=== PATIENT | female | born 1970 | race Caucasian/White ===

== ENCOUNTER 2021-10-01 14:16 | Emergency (ER) | payer OTHER ==
[~2021-10-01] VITALS: Ht 170.2 cm; Wt 70.8 kg
--- NOTE | 2021-10-01 14:49 | NUR ---
PT IS IN ROOM #2A. DR VICKERS EVALUATED THE PT.
[2021-10-01 15:07] LABS: CARBON DIOXIDE 29 mmol/L (21-32); CHLORIDE 104 mmol/L (98-107); CREATININE 0.7 mg/dL (0.6-1.3); GLUCOSE 85 mg/dL (74-106); POTASSIUM 3.9 mmol/L (3.5-5.1); UREA NITROGEN, BLOOD 14 mg/dL (7-18)
[2021-10-01 15:16] LABS: ALANINE AMINOTRANSFERASE 21 U/L (14-59); ALKALINE PHOSPHATASE 50 U/L (50-136); ASPARTATE AMINOTRANSFERASE 9 U/L (15-37); BILIRUBIN,DIRECT 0.1 mg/dL (0.0-0.2); BILIRUBIN,TOTAL 0.4 mg/dL (0.2-1.0); LIPASE 139 U/L (73-393); TOTAL PROTEIN, SERUM 6.6 g/dL (6.4-8.2)
[2021-10-01 15:26] LABS: HEMATOCRIT 41.2 % (31.2-41.9); MEAN CORPUSCULAR VOLUME 85.5 fL (75.5-95.3); PLATELET COUNT (AUTO) 291 K/uL (179-408)
[2021-10-01 16:24] LABS: *BILIRUBIN,URIN NEGATIVE (NEGATIVE); *BLOOD, URINE NEGATIVE (NEGATIVE); *CLARITY,URINE CLEAR (CLEAR); *COLOR,URINE YELLOW (YELLOW); *KETONES,URINE NEGATIVE (NEGATIVE); *UROBILINOGEN,URINE 0.2 E.U./dl (NORMAL); LEUKOCYTE ESTERASE ,URINE NEGATIVE (NEGATIVE); NITRITE, URINE NEGATIVE (NEGATIVE); PH,URINE 5.5 (5.0-8.0); UGLUCOSE NEGATIVE (NEGATIVE)
[2021-10-01 16:30] LABS: *URINE HCG, QUAL NEGATIVE (NEGATIVE)
[2021-10-01] MEDS ORDERED: FAMO40TA7 PO (17:40)
[2021-10-01] MEDS ORDERED: MAG355OR18 PO (17:40)
[2021-10-01] MEDS ORDERED: MAG HYDROX/AL HYDROX/SIMETH 30 ML LIQUID UDC ONE (17:41)
[2021-10-01] MEDS ORDERED: LIDOCAINE VISCUS 2% 15 ML UDC ONE (17:41)
[2021-10-01] MEDS ORDERED: FAMOTIDINE 20 MG TABLET ONE (17:41)
[2021-10-01] MEDS ORDERED: FAMOTIDINE 20 MG TABLET PO ONE (17:45)
[2021-10-01] MEDS ORDERED: MAG HYDROX/AL HYDROX/SIMETH 30 ML LIQUID UDC PO ONE (17:45)
[2021-10-01] MEDS ORDERED: LIDOCAINE VISCUS 2% 15 ML UDC MM ONE (17:45)
--- NOTE | 2021-10-01 17:46 | NUR ---
PT WAS D/C'd TO HOME. D/C INSTRUCTIONS GIVEN TO THE PT BY DR VCIKERS.
[2021-10-01 17:50] VITALS: BP 128/77
== END 2021-10-01 17:52 | disposition home or self-care (01) ==
LOC: ER 14:16
DX: R10.13 Epigastric pain (principal); R11.10 Vomiting, unspecified; R07.9 Chest pain, unspecified; N20.0 Calculus of kidney; N85.2 Hypertrophy of uterus; R94.31 Abnormal electrocardiogram [ECG] [EKG]
CPT/HCPCS: 36415; 71045; 83690; 84484; 84703; 85025; 87086; 93005; A4663; J7040